=== PATIENT | female | born 1955 | race Two or more races ===

== ENCOUNTER 2018-09-22 18:49 | Inpatient (IN) | payer OTHER ==
[~2018-09-22] VITALS: Ht 170.2 cm; Wt 130.2 kg
[2018-09-22] MEDS ORDERED: SODIUM CHLORIDE 0.9% 1,000 ML IV ONE ×2 (21:21→22:06)
[2018-09-22] MEDS ORDERED: MORPHINE SULFATE 4 MG/ML CPJ (NOT FOR IM USE) IV ONE ×2 (21:30→23:45)
[2018-09-22] MEDS ORDERED: ONDANSETRON HCL 4MG/2ML INJ IV ONE (21:30)
[2018-09-22 21:52] LABS: CHLORIDE 103 mEq/L (98-107)
[2018-09-22 21:53] LABS: INR 1.6; PROTHROMBIN TIME 16.1 sec (9.1-11.1)
[2018-09-22 22:02] LABS: HEMATOCRIT. 34.2 % (36.0-48.0); MEAN CORPUSCULAR HEMOGLOBIN 28.5 pg (28.0-32.0); MEAN CORPUSCULAR VOLUME 88.4 fL (81.0-99.0); MEAN PLATELET VOLUME 9.1 fl (7.4-10.4); PLATELET 327 x1000/uL (130-400); RED BLOOD CELL COUNT 3.86 mill/uL (4.2-5.4); RED CELL DISTRIBUTION WIDTH 18.3 % (11.6-14.6)
[2018-09-22] MEDS ORDERED: PIPERACILLIN/TAZ 3.375G PREMIX 50 ML IV ONE (22:15)
[2018-09-22] MEDS ORDERED: VANCOMYCIN 1 G PREMIX 200 ML IV ONE (22:15)
[2018-09-22 22:40] LABS: PLATELET ESTIMATE NORMAL
[2018-09-23] VITALS (23 sets, daily range): BP systolic 76–125; BP diastolic 34–85
[2018-09-23 00:44] LABS: CLARITY URINE TURBID (CLEAR); KETONES URINE TRACE (NEGATIVE); LEUKOCYTE ESTERASE URINE 3+ (NEGATIVE); NITRITE URINE NEGATIVE (NEGATIVE); OCCULT BLOOD URINE NEGATIVE (NEGATIVE); PH URINE 5.5 (4.5-8.0); PROTEIN URINE 1+ (NEGATIVE); SPECIFIC GRAVITY URINE 1.016 (1.005-1.030)
[2018-09-23] MEDS ORDERED: PIPERACILLIN/TAZ 3.375G PREMIX 50 ML IV SCH ×2 (00:45→06:00)
[2018-09-23] MEDS ORDERED: ACETAMINOPHEN 325MG TABLET PO PRN (00:45)
[2018-09-23] MEDS ORDERED: IPRATROPIUM/ALBUTEROL 0.5-3(2.5)MG/3ML NEB INH PRN (00:45)
[2018-09-23] MEDS ORDERED: ONDANSETRON HCL 4MG/2ML INJ IV PRN (00:45)
[2018-09-23] MEDS ORDERED: MAGNESIUM/ALUMINUM HYDROXIDE/SIMETHICONE 30ML UDC PO PRN (00:45)
[2018-09-23] MEDS ORDERED: CLONIDINE 0.1MG TABLET PO PRN (00:45)
[2018-09-23] MEDS ORDERED: DOCUSATE SODIUM 100MG CAPSULE PO PRN (00:45)
[2018-09-23 00:48] LABS: COLOR URINE BROWN (YELLOW)
[2018-09-23] MEDS: SODIUM CHLORIDE 0.9% 1,000 ML IV SCH ×2 (01:40→16:09)
[2018-09-23 02:42] LABS: CARCINO EMBRYONIC ANTIGEN 40.9 ng/ml
[2018-09-23 03:02] LABS: HEPATITIS B SURFACE ANTIGEN NEGATIVE
[2018-09-23] MEDS: HYDROCODONE/ACETAMINOPHEN 5/325MG TABLET PO PRN ×3 (03:19→21:15)
[2018-09-23 03:23] LABS: HEPATITIS A AB IGM NEGATIVE (NEGATIVE)
[2018-09-23] MEDS: PIPERACILLIN/TAZ 2.25G PREMIX 50 ML IV SCH ×4 (07:14→23:50)
[2018-09-23] MEDS: DIPHENHYDRAMINE 50MG/ML VIAL IV PRN ×3 (09:14→21:11)
[2018-09-23] MEDS: ENOXAPARIN 100MG/ML SYR SUBCUT SCH ×2 (09:15→21:22)
[2018-09-23 09:36] LABS: CREATINE KINASE 49 IU/L (26-192)
[2018-09-23 09:40] LABS: CREATINE KINASE MB FRACTION 1.4 ng/mL (0.5-3.6)
[2018-09-23] MEDS: OXYCODONE HCL 10MG TABLET SR 12HR PO SCH ×2 (11:00→21:00)
[2018-09-23] MEDS: MIDODRINE HCL 5MG TABLET PO SCH ×2 (12:23→17:28)
[2018-09-23 17:34] LABS: CREATINE KINASE 45 IU/L (26-192)
[2018-09-23 17:35] LABS: CREATINE KINASE MB FRACTION < 1.0 ng/mL (0.5-3.6)
[2018-09-23] MEDS: MORPHINE SULFATE 4 MG/ML CPJ (NOT FOR IM USE) IV PRN (23:51)
[2018-09-24] VITALS (63 sets, daily range): BP systolic 40–162; BP diastolic 20–88
[2018-09-24] MEDS: SODIUM CHLORIDE 0.9% 1,000 ML IV SCH ×2 (02:01→14:28)
[2018-09-24] MEDS: PIPERACILLIN/TAZ 2.25G PREMIX 50 ML IV SCH ×3 (05:34→17:28)
[2018-09-24] MEDS: DIPHENHYDRAMINE 50MG/ML VIAL IV PRN ×2 (05:35→19:37)
[2018-09-24 05:37] LABS: CHLORIDE 111 mEq/L (98-107)
[2018-09-24 05:54] LABS: HDL CHOLESTEROL 8 mg/dL (40-59)
[2018-09-24 06:03] LABS: LDL CHOLESTEROL 459 mg/dL (5-100)
[2018-09-24] MEDS ORDERED: NOREPINEPHRINE 4MG/250ML PMX 250 ML IV ONE (06:15)
[2018-09-24] MEDS ORDERED: SODIUM CHLORIDE 0.9% 1,000 ML IV ONE (06:15)
[2018-09-24 07:00] LABS: HEMATOCRIT. 29.4 % (36.0-48.0); HEMOGLOBIN. 9.1 g/dL (12.0-16.0); MEAN CORPUSCULAR HEMOGLOBIN 28.5 pg (28.0-32.0); MEAN CORPUSCULAR VOLUME 92.3 fL (81.0-99.0); MEAN PLATELET VOLUME 9.1 fl (7.4-10.4); PLATELET 258 x1000/uL (130-400); RED BLOOD CELL COUNT 3.19 mill/uL (4.2-5.4); RED CELL DISTRIBUTION WIDTH 19.5 % (11.6-14.6)
[2018-09-24] MEDS: OXYCODONE HCL 10MG TABLET SR 12HR PO SCH (08:21)
[2018-09-24] MEDS: MIDODRINE HCL 5MG TABLET PO SCH ×2 (08:21→17:27)
[2018-09-24] MEDS: ENOXAPARIN 100MG/ML SYR SUBCUT SCH ×2 (08:34→22:21)
[2018-09-24] MEDS: HYDROCODONE/ACETAMINOPHEN 5/325MG TABLET PO PRN (12:43)
[2018-09-24] MEDS ORDERED: MIDODRINE HCL 5MG TABLET PO SCH ×2 (13:00→14:00)
[2018-09-24] MEDS ORDERED: ALBUMIN HUMAN 25GM/100ML (25%) IV NR (14:00)
[2018-09-24 14:28] LABS: BG BASE EXCESS -10.5 mmol/L (-2.0-2.0); BG CARBOXYHEMOGLOBIN 1.1 % (0.5-1.5); BG FRACTION INSPIRED OXYGEN 34; BG HCO3 ACT 15.8 mmol/L (22.0-26.0); BG METHEMOGLOBIN 0.2 % (0.0-1.5); BG OXYGEN SATURATION 94.9 % (92.0-98.5); BG OXYHEMOGLOBIN 93.7 % (94.0-97.0); BG PCO2 36.1 mmHg (35.0-45.0); BG PH 7.258 (7.350-7.450); BG PO2 78.1 mmHg (75.0-100.0); BG SAMPLE SITE RIGHT BRACHIAL; BG TOTAL HEMOGLOBIN 10.6 g/dL (12.0-18.0); BG VENT MODE NASAL CANNULA
[2018-09-24 14:39] LABS: PLATELET ESTIMATE NORMAL
[2018-09-24] MEDS ORDERED: LIDOCAINE HCL/PF 1% 2ML VIAL ONE (15:42)
[2018-09-24] MEDS: NOREPINEPHRINE 4 MG in DEXTROSE 5% WATER 250 ML IV PRN (16:31)
[2018-09-24] MEDS ORDERED: ATROPINE SULFATE 1MG/10ML SYR IV NR (16:45)
[2018-09-24] MEDS: DOPAMINE 400MG/250ML PREMIX 250 ML IV PRN (16:48)
[2018-09-24] MEDS: CITRIC ACID/SODIUM CITRATE SOLN 30ML UDC PO SCH (17:26)
[2018-09-24 20:42] LABS: BG BASE EXCESS -11.8 mmol/L (-2.0-2.0); BG CARBOXYHEMOGLOBIN 0.8 % (0.5-1.5); BG DEOXYHEMOGLOBIN 7.5 % (0.0-5.0); BG FRACTION INSPIRED OXYGEN 60; BG HCO3 ACT 14.7 mmol/L (22.0-26.0); BG METHEMOGLOBIN 0.8 % (0.0-1.5); BG OXYGEN SATURATION 92.4 % (92.0-98.5); BG OXYHEMOGLOBIN 90.9 % (94.0-97.0); BG PCO2 35.3 mmHg (35.0-45.0); BG PH 7.237 (7.350-7.450); BG SAMPLE SITE RIGHT RADIAL; BG VENT MODE MASK - SIMPLE
[2018-09-24 23:11] LABS: BG BASE EXCESS -11.7 mmol/L (-2.0-2.0); BG BILEVEL POS AIRWAY PRESSURE 15/5; BG CARBOXYHEMOGLOBIN 1.2 % (0.5-1.5); BG DEOXYHEMOGLOBIN 1.3 % (0.0-5.0); BG FRACTION INSPIRED OXYGEN 100; BG HCO3 ACT 14.7 mmol/L (22.0-26.0); BG METHEMOGLOBIN 0.1 % (0.0-1.5); BG OXYGEN SATURATION 98.7 % (92.0-98.5); BG OXYHEMOGLOBIN 97.4 % (94.0-97.0); BG PH 7.242 (7.350-7.450); BG PO2 121.7 mmHg (75.0-100.0); BG SAMPLE SITE RIGHT RADIAL; BG TOTAL HEMOGLOBIN 10.5 g/dL (12.0-18.0); BG VENT MODE MASK - BIPAP
[2018-09-24] MEDS ORDERED: SODIUM BICARBONATE 8.4% 1 MEQ/ML 50ML SYR IV NR (23:45)
[2018-09-25] VITALS (93 sets, daily range): BP systolic 33–193; BP diastolic 18–148
[2018-09-25] MEDS: PIPERACILLIN/TAZ 2.25G PREMIX 50 ML IV SCH ×3 (00:05→12:33)
[2018-09-25] MEDS: IPRATROPIUM/ALBUTEROL 0.5-3(2.5)MG/3ML NEB HHN SCH ×7 (01:06→20:41)
[2018-09-25 02:07] LABS: BG BASE EXCESS -10.1 mmol/L (-2.0-2.0); BG BILEVEL POS AIRWAY PRESSURE 15/5; BG CARBOXYHEMOGLOBIN 1.2 % (0.5-1.5); BG DEOXYHEMOGLOBIN 0.3 % (0.0-5.0); BG FRACTION INSPIRED OXYGEN 100; BG HCO3 ACT 15.7 mmol/L (22.0-26.0); BG METHEMOGLOBIN 0.4 % (0.0-1.5); BG OXYGEN SATURATION 99.7 % (92.0-98.5); BG OXYHEMOGLOBIN 98.1 % (94.0-97.0); BG PCO2 34.4 mmHg (35.0-45.0); BG PH 7.277 (7.350-7.450); BG PO2 351.4 mmHg (75.0-100.0); BG SAMPLE SITE RIGHT RADIAL; BG TOTAL HEMOGLOBIN 12.9 g/dL (12.0-18.0); BG VENT MODE MASK - BIPAP
[2018-09-25] MEDS: DIPHENHYDRAMINE 50MG/ML VIAL IV PRN ×4 (02:37→22:57)
[2018-09-25] MEDS: SODIUM CHLORIDE 0.9% 1,000 ML IV SCH (02:40)
[2018-09-25] MEDS: DOPAMINE 400MG/250ML PREMIX 250 ML IV PRN ×2 (02:57→12:34)
[2018-09-25] MEDS: NOREPINEPHRINE 4 MG in DEXTROSE 5% WATER 250 ML IV PRN (02:58)
[2018-09-25 05:42] LABS: CHLORIDE 107 mEq/L (98-107)
[2018-09-25 05:49] LABS: PHOSPHORUS 3.4 mg/dL (2.5-4.9)
[2018-09-25 06:38] LABS: HEMATOCRIT. 30.3 % (36.0-48.0); HEMOGLOBIN. 9.7 g/dL (12.0-16.0); MEAN CORPUSCULAR HEMOGLOBIN 29.1 pg (28.0-32.0); MEAN CORPUSCULAR VOLUME 90.5 fL (81.0-99.0); MEAN PLATELET VOLUME 9.1 fl (7.4-10.4); PLATELET 315 x1000/uL (130-400); RED BLOOD CELL COUNT 3.35 mill/uL (4.2-5.4); RED CELL DISTRIBUTION WIDTH 19.1 % (11.6-14.6)
[2018-09-25 07:47] LABS: BG BASE EXCESS -8.9 mmol/L (-2.0-2.0); BG BILEVEL POS AIRWAY PRESSURE 15/5; BG CARBOXYHEMOGLOBIN 1.1 % (0.5-1.5); BG DEOXYHEMOGLOBIN 0.8 % (0.0-5.0); BG HCO3 ACT 16.7 mmol/L (22.0-26.0); BG METHEMOGLOBIN 0.3 % (0.0-1.5); BG OXYGEN SATURATION 99.2 % (92.0-98.5); BG OXYHEMOGLOBIN 97.8 % (94.0-97.0); BG PCO2 35.1 mmHg (35.0-45.0); BG PH 7.296 (7.350-7.450); BG PO2 139.1 mmHg (75.0-100.0); BG SAMPLE SITE RIGHT RADIAL; BG TOTAL HEMOGLOBIN 9.4 g/dL (12.0-18.0); BG VENT MODE MASK - BIPAP; BG VENT RATE 28 set
[2018-09-25] MEDS: MIDODRINE HCL 5MG TABLET PO SCH ×3 (08:50→16:14)
[2018-09-25] MEDS: ENOXAPARIN 100MG/ML SYR SUBCUT SCH (08:50)
[2018-09-25] MEDS: CITRIC ACID/SODIUM CITRATE SOLN 30ML UDC PO SCH ×3 (08:52→16:14)
[2018-09-25 09:09] LABS: PLATELET ESTIMATE NORMAL
[2018-09-25] MEDS: MORPHINE SULFATE 4 MG/ML CPJ (NOT FOR IM USE) IV PRN ×3 (10:46→23:01)
[2018-09-25] MEDS ORDERED: FUROSEMIDE 20MG/2ML VIAL IVP SCH (12:30)
[2018-09-25] MEDS ORDERED: ALBUMIN HUMAN 12.5GM/50ML (25%) IV SCH (12:30)
[2018-09-25] MEDS: ZINC SULFATE 220 MG ( 50 ) CAPSULE PO SCH (12:33)
[2018-09-25] MEDS: CEFTRIAXONE 1 G PREMIX 50 ML IV SCH (14:29)
[2018-09-25 15:09] LABS: AMYLASE 10 IU/L (25-115)
[2018-09-25] MEDS ORDERED: ALBUMIN HUMAN 25GM/100ML (25%) IV NR (15:12)
[2018-09-25] MEDS ORDERED: FUROSEMIDE 40MG/4ML VIAL IVP NR (15:30)
[2018-09-25] MEDS ORDERED: LIDOCAINE HCL/PF 1% 2ML VIAL ONE (15:38)
[2018-09-26] VITALS (57 sets, daily range): BP systolic 43–166; BP diastolic 22–121
[2018-09-26] MEDS: IPRATROPIUM/ALBUTEROL 0.5-3(2.5)MG/3ML NEB HHN SCH ×6 (00:18→20:21)
[2018-09-26] MEDS: DOPAMINE 400MG/250ML PREMIX 250 ML IV PRN ×2 (02:22→07:53)
[2018-09-26] MEDS: DIPHENHYDRAMINE 50MG/ML VIAL IV PRN ×3 (04:22→18:00)
[2018-09-26] MEDS: MORPHINE SULFATE 4 MG/ML CPJ (NOT FOR IM USE) IV PRN ×4 (04:24→20:04)
[2018-09-26 05:41] LABS: HEMATOCRIT. 25.5 % (36.0-48.0); HEMOGLOBIN. 8.3 g/dL (12.0-16.0); MEAN CORPUSCULAR HEMOGLOBIN 29.1 pg (28.0-32.0); MEAN CORPUSCULAR VOLUME 89.2 fL (81.0-99.0); MEAN PLATELET VOLUME 9.5 fl (7.4-10.4); PLATELET 318 x1000/uL (130-400); RED BLOOD CELL COUNT 2.86 mill/uL (4.2-5.4); RED CELL DISTRIBUTION WIDTH 18.9 % (11.6-14.6)
[2018-09-26 05:45] LABS: PARTIAL THROMBOPLASTIN TIME 48.5 sec (23.4-31.0); PROTHROMBIN TIME 20.2 sec (9.1-11.1)
[2018-09-26 05:53] LABS: PHOSPHORUS 2.2 mg/dL (2.5-4.9)
[2018-09-26] MEDS ORDERED: ALBUMIN HUMAN 25GM/100ML (25%) IV SCH (06:30)
[2018-09-26] MEDS ORDERED: POTASSIUM PHOS,M-BASIC-D-BASIC 30 MMOL in SODIUM CHLORIDE 0.9% 500 ML IV SCH (08:00)
[2018-09-26] MEDS: ENOXAPARIN 100MG/ML SYR SUBCUT SCH (09:00)
[2018-09-26] MEDS: MIDODRINE HCL 5MG TABLET PO SCH ×3 (09:16→18:00)
[2018-09-26] MEDS: ZINC SULFATE 220 MG ( 50 ) CAPSULE PO SCH (09:16)
[2018-09-26] MEDS: CITRIC ACID/SODIUM CITRATE SOLN 30ML UDC PO SCH ×3 (09:16→18:00)
[2018-09-26 10:46] LABS: PLATELET ESTIMATE NORMAL
[2018-09-26 10:48] LABS: *AMPHETAMINES SCREEN URINE NEGATIVE (NEGATIVE); *BARBITURATES SCREEN URINE NEGATIVE (NEGATIVE); *BENZODIAZEPINES SCREEN URINE NEGATIVE (NEGATIVE); *COCAINE SCREEN URINE PRESUMTIVE POSITIVE (NEGATIVE); CANNABINOID URINE SCREEN NEGATIVE (NEGATIVE); METHADONE URINE SCREEN NEGATIVE (NEGATIVE); PHENCYCLIDINE URINE SCREEN NEGATIVE (NEGATIVE)
[2018-09-26 10:49] LABS: OPIATES URINE SCREEN PRESUMTIVE POSITIVE (NEGATIVE)
[2018-09-26] MEDS: METRONIDAZOLE 500MG TABLET PO SCH ×2 (14:09→21:58)
[2018-09-26] MEDS: CEFTRIAXONE 1 G PREMIX 50 ML IV SCH (14:12)
[2018-09-26] MEDS: HYDROCODONE/ACETAMINOPHEN 5/325MG TABLET PO PRN (21:58)
[2018-09-27] VITALS: BP 91/49
[2018-09-27] MEDS: IPRATROPIUM/ALBUTEROL 0.5-3(2.5)MG/3ML NEB HHN SCH ×6 (00:18→21:42)
[2018-09-27 04:00] VITALS: BP 76/32
[2018-09-27] MEDS: METRONIDAZOLE 500MG TABLET PO SCH ×3 (06:04→22:59)
[2018-09-27] MEDS: HYDROCODONE/ACETAMINOPHEN 5/325MG TABLET PO PRN (06:04)
[2018-09-27 08:00] VITALS: BP 93/45
[2018-09-27 08:07] LABS: MEAN CORPUSCULAR HEMOGLOBIN 28.8 pg (28.0-32.0); MEAN CORPUSCULAR VOLUME 89.7 fL (81.0-99.0); MEAN PLATELET VOLUME 8.8 fl (7.4-10.4); PLATELET 308 x1000/uL (130-400); RED BLOOD CELL COUNT 2.28 mill/uL (4.2-5.4); RED CELL DISTRIBUTION WIDTH 18.9 % (11.6-14.6)
[2018-09-27 08:09] LABS: INR 2.7; PARTIAL THROMBOPLASTIN TIME 45.9 sec (23.4-31.0); PROTHROMBIN TIME 26.6 sec (9.1-11.1)
[2018-09-27 08:18] LABS: PHOSPHORUS 2.7 mg/dL (2.5-4.9)
[2018-09-27 08:39] LABS: HEMATOCRIT. 20.5 % (36.0-48.0); HEMOGLOBIN. 6.6 g/dL (12.0-16.0)
[2018-09-27] MEDS: ZINC SULFATE 220 MG ( 50 ) CAPSULE PO SCH (09:12)
[2018-09-27] MEDS: CITRIC ACID/SODIUM CITRATE SOLN 30ML UDC PO SCH ×3 (09:12→17:42)
[2018-09-27] MEDS ORDERED: MORPHINE SULFATE 4 MG/ML CPJ (NOT FOR IM USE) IV SCH (10:30)
[2018-09-27 10:56] LABS: PLATELET ESTIMATE NORMAL
[2018-09-27] MEDS: MIDODRINE HCL 5MG TABLET PO SCH ×3 (10:57→17:44)
[2018-09-27 12:00] VITALS: BP 95/52
[2018-09-27] MEDS ORDERED: MORPHINE SULFATE 250 MG in DEXT 5% WATER 240 ML IV PRN (12:30)
[2018-09-27] MEDS: CEFTRIAXONE 1 G PREMIX 50 ML IV SCH (13:11)
[2018-09-27] MEDS: MORPHINE SULFATE 4 MG/ML CPJ (NOT FOR IM USE) IV PRN (15:19)
[2018-09-27] MEDS: DIPHENHYDRAMINE 50MG/ML VIAL IV PRN (15:20)
[2018-09-27 16:00] VITALS: BP 97/60
[2018-09-27 20:00] VITALS: BP 86/49
[2018-09-27] MEDS ORDERED: MORPHINE SULFATE 4 MG/ML CPJ (NOT FOR IM USE) IV PRN (20:00)
[2018-09-28] MEDS: IPRATROPIUM/ALBUTEROL 0.5-3(2.5)MG/3ML NEB HHN SCH ×6 (01:11→21:06)
[2018-09-28 04:00] VITALS: BP_SYST 85; BP_DIAS 35; BP_DIAS 39
[2018-09-28] MEDS: METRONIDAZOLE 500MG TABLET PO SCH ×3 (06:11→21:01)
[2018-09-28 08:00] VITALS: BP 100/50
[2018-09-28] MEDS: CITRIC ACID/SODIUM CITRATE SOLN 30ML UDC PO SCH ×3 (08:52→15:57)
[2018-09-28] MEDS: MIDODRINE HCL 5MG TABLET PO SCH ×3 (08:53→15:58)
[2018-09-28] MEDS: ZINC SULFATE 220 MG ( 50 ) CAPSULE PO SCH (08:53)
[2018-09-28] MEDS ORDERED: MORPHINE SULFATE 4 MG/ML CPJ (NOT FOR IM USE) IV NR (09:30)
[2018-09-28] MEDS ORDERED: MORPHINE SULFATE 4 MG/ML CPJ (NOT FOR IM USE) IV PRN (09:30)
[2018-09-28] MEDS: HYDROMORPHONE HCL/PF 2MG/ML CPJ IV SCH ×3 (09:45→20:24)
[2018-09-28] MEDS: DIPHENHYDRAMINE 50MG/ML VIAL IV PRN ×2 (10:09→14:26)
[2018-09-28 12:00] VITALS: BP 95/40
[2018-09-28] MEDS ORDERED: LIDOCAINE HCL/PF 1% 10 MG/ML 5ML VIAL ONE (13:04)
[2018-09-28] MEDS ORDERED: SODIUM BICARBONATE 4% (2.4MEQ) 5ML VIAL IV ONE (13:05)
[2018-09-28] MEDS: CEFTRIAXONE 1,000 MG in DEXTROSE 5% WATER 50 ML IV SCH (15:00)
[2018-09-28 16:00] VITALS: BP 95/45
[2018-09-28 20:00] VITALS: BP 86/46
[2018-09-29] VITALS: BP 92/38
[2018-09-29] MEDS: IPRATROPIUM/ALBUTEROL 0.5-3(2.5)MG/3ML NEB HHN SCH ×4 (00:26→20:49)
[2018-09-29] MEDS: HYDROMORPHONE HCL/PF 2MG/ML CPJ IV SCH ×4 (02:29→21:41)
[2018-09-29 04:00] VITALS: BP 86/45
[2018-09-29] MEDS: METRONIDAZOLE 500MG TABLET PO SCH ×3 (06:00→21:37)
[2018-09-29 08:00] VITALS: BP 100/52
[2018-09-29] MEDS: CITRIC ACID/SODIUM CITRATE SOLN 30ML UDC PO SCH ×3 (09:35→16:50)
[2018-09-29] MEDS: MIDODRINE HCL 5MG TABLET PO SCH ×3 (09:36→16:50)
[2018-09-29] MEDS: ZINC SULFATE 220 MG ( 50 ) CAPSULE PO SCH (09:36)
[2018-09-29 12:00] VITALS: BP 101/50
[2018-09-29 12:24] LABS: INR 2.2; PARTIAL THROMBOPLASTIN TIME 37.3 sec (23.4-31.0); PROTHROMBIN TIME 22.1 sec (9.1-11.1)
[2018-09-29 16:00] VITALS: BP 100/55
[2018-09-29] MEDS: CEFTRIAXONE 1,000 MG in DEXTROSE 5% WATER 50 ML IV SCH (16:47)
[2018-09-30] VITALS: BP 115/61
[2018-09-30 04:00] VITALS: BP 96/50
[2018-09-30] MEDS: HYDROMORPHONE HCL/PF 2MG/ML CPJ IV SCH ×4 (04:18→20:42)
[2018-09-30] MEDS: IPRATROPIUM/ALBUTEROL 0.5-3(2.5)MG/3ML NEB HHN SCH ×6 (04:27→21:12)
[2018-09-30] MEDS: METRONIDAZOLE 500MG TABLET PO SCH ×3 (06:03→21:01)
[2018-09-30 07:18] LABS: INR 2.6; PARTIAL THROMBOPLASTIN TIME 38.6 sec (23.4-31.0); PROTHROMBIN TIME 25.3 sec (9.1-11.1)
[2018-09-30 07:26] LABS: MEAN CORPUSCULAR HEMOGLOBIN 29.2 pg (28.0-32.0); MEAN PLATELET VOLUME 9.2 fl (7.4-10.4); PLATELET 286 x1000/uL (130-400); RED BLOOD CELL COUNT 2.28 mill/uL (4.2-5.4); RED CELL DISTRIBUTION WIDTH 20.3 % (11.6-14.6)
[2018-09-30 07:45] LABS: HEMOGLOBIN. 6.7 g/dL (12.0-16.0)
[2018-09-30 07:51] LABS: PHOSPHORUS 1.6 mg/dL (2.5-4.9)
[2018-09-30] MEDS: CITRIC ACID/SODIUM CITRATE SOLN 30ML UDC PO SCH ×3 (09:34→17:42)
[2018-09-30] MEDS: ZINC SULFATE 220 MG ( 50 ) CAPSULE PO SCH (09:34)
[2018-09-30] MEDS: MIDODRINE HCL 5MG TABLET PO SCH ×3 (09:34→17:42)
[2018-09-30 11:03] LABS: PLATELET ESTIMATE NORMAL
[2018-09-30] MEDS: DIPHENHYDRAMINE 50MG/ML VIAL IV PRN (15:29)
[2018-09-30] MEDS: CEFTRIAXONE 1,000 MG in DEXTROSE 5% WATER 50 ML IV SCH (15:29)
[2018-09-30 20:00] VITALS: BP 120/52
[2018-09-30] MEDS: MORPHINE SULFATE 15MG TABLET SR PO SCH (21:01)
[2018-10-01] VITALS: BP 105/97
[2018-10-01] MEDS: IPRATROPIUM/ALBUTEROL 0.5-3(2.5)MG/3ML NEB HHN SCH ×3 (00:57→13:15)
[2018-10-01] MEDS: HYDROMORPHONE HCL/PF 2MG/ML CPJ IV SCH ×2 (04:29→08:30)
[2018-10-01] MEDS: DIPHENHYDRAMINE 50MG/ML VIAL IV PRN (04:32)
[2018-10-01] MEDS: METRONIDAZOLE 500MG TABLET PO SCH (05:39)
[2018-10-01 08:00] VITALS: BP 89/45
[2018-10-01] MEDS: CITRIC ACID/SODIUM CITRATE SOLN 30ML UDC PO SCH (10:10)
[2018-10-01] MEDS: MORPHINE SULFATE 15MG TABLET SR PO SCH (10:10)
[2018-10-01] MEDS: MIDODRINE HCL 5MG TABLET PO SCH (10:11)
[2018-10-01] MEDS: ZINC SULFATE 220 MG ( 50 ) CAPSULE PO SCH (10:11)
[2018-10-01 12:00] VITALS: BP 110/70
[2018-10-01 15:40] VITALS: BP 101/44
[2018-10-01 16:00] VITALS: BP 101/44
== END 2018-10-01 16:10 | DRG 720 ==
LOC: ER 18:49 → 5EST 23:43 → EDBEDREQ 23:45 → EDBEDREQTM 23:45 → ENRESERV 09-23 03:24 → MICUSO 09-23 08:10 → 6EST 09-26 23:30
PROVIDERS: ADMIT Internal Medicine; ATTEND Internal Medicine
PROC: 5A09357 Assistance with Respiratory Ventilation, Less than 24 Consecutive Hours, Continuous Positive Airway Pressure (ICD-10-PCS; 2018-09-24)
PROC: 5A09357 Assistance with Respiratory Ventilation, Less than 24 Consecutive Hours, Continuous Positive Airway Pressure (ICD-10-PCS; 2018-09-26)
PROC: 5A09357 Assistance with Respiratory Ventilation, Less than 24 Consecutive Hours, Continuous Positive Airway Pressure (ICD-10-PCS; 2018-09-27)
PROC: 02HV33Z Insertion of Infusion Device into Superior Vena Cava, Percutaneous Approach (ICD-10-PCS; principal; 2018-09-28)
PROC: B548ZZA Ultrasonography of Superior Vena Cava, Guidance (ICD-10-PCS; 2018-09-28)
PROC: B5181ZA Fluoroscopy of Superior Vena Cava using Low Osmolar Contrast, Guidance (ICD-10-PCS; 2018-09-28)
DX: A41.9 Sepsis, unspecified organism (principal); N17.0 Acute kidney failure with tubular necrosis; J96.00 Acute respiratory failure, unspecified whether with hypoxia or hypercapnia; R65.21 Severe sepsis with septic shock; E43 Unspecified severe protein-calorie malnutrition; G93.41 Metabolic encephalopathy; K83.1 Obstruction of bile duct; D68.59 Other primary thrombophilia; Z51.5 Encounter for palliative care; Z66 Do not resuscitate; D68.9 Coagulation defect, unspecified; C78.7 Secondary malignant neoplasm of liver and intrahepatic bile duct; E66.01 Morbid (severe) obesity due to excess calories; C25.9 Malignant neoplasm of pancreas, unspecified; B19.20 Unspecified viral hepatitis C without hepatic coma; B96.1 Klebsiella pneumoniae [K. pneumoniae] as the cause of diseases classified elsewhere; N39.0 Urinary tract infection, site not specified; N18.9 Chronic kidney disease, unspecified; B18.2 Chronic viral hepatitis C; B96.89 Other specified bacterial agents as the cause of diseases classified elsewhere; E83.52 Hypercalcemia; R00.1 Bradycardia, unspecified; D63.8 Anemia in other chronic diseases classified elsewhere; E78.2 Mixed hyperlipidemia; E87.6 Hypokalemia; E80.6 Other disorders of bilirubin metabolism; F17.210 Nicotine dependence, cigarettes, uncomplicated; G89.4 Chronic pain syndrome; I12.9 Hypertensive chronic kidney disease with stage 1 through stage 4 chronic kidney disease, or unspecified chronic kidney disease; I27.20 Pulmonary hypertension, unspecified; I82.403 Acute embolism and thrombosis of unspecified deep veins of lower extremity, bilateral; K72.90 Hepatic failure, unspecified without coma; M81.0 Age-related osteoporosis without current pathological fracture; Z68.42 Body mass index [BMI] 45.0-49.9, adult; Z79.899 Other long term (current) drug therapy; Z82.49 Family history of ischemic heart disease and other diseases of the circulatory system; Z85.07 Personal history of malignant neoplasm of pancreas
CPT/HCPCS: 36415; 36569; 36573; 36600; 71045; 74176; 80048; 80061; 80305; 82105; 82140; 82150; 82247; 82248; 82375; 82378; 82550; 82553; 82805; 83036; 83605; 83735; 84100; 84145; 84443; 84484; 86301; 86705; 86709; 86803; 87077; 87186; 87340; 93005; 93306; 93970; 94640; 96374; 99285; C1725; C1769; J0461; J0696; J1170; J1200; J1265; J1650; J1940; J2270; J2405; J2543; J3370; J3490; J7030; J7040; J7060; J7620; P9047; A4315